=== PATIENT | female | born 1990 | race Caucasian/White ===

== ENCOUNTER 2018-08-07 06:00 | Day surgery (SDC) | payer OTHER ==
[2018-08-07 06:29] LABS: HEMATOCRIT 37.3 % (36.0-47.0); HEMOGLOBIN 13.1 g/dl (12.0-15.5); MEAN CORPUSCULAR HEMOGLOBIN 32.7 pg (27.0-33.0); MEAN CORPUSCULAR HGB CONC 35.1 g/dl (32.0-36.5); PLATELET COUNT, AUTOMATED 285 10^3/uL (150-450); RED BLOOD COUNT 4.01 10^6/uL (4.00-5.40); WHITE BLOOD COUNT 5.6 10^3/uL (4.0-10.0)
[2018-08-07 06:48] LABS: CONTROL LINE HCG INT CTR LINE PRESENT; HCG, SERUM QUALITATIVE NEGATIVE (NEGATIVE)
[2018-08-07] MEDS: LR 1,000 ML IV ×3 (07:00→18:17)
[2018-08-07] MEDS ORDERED: SILVER NITRATE APPLICATOR As Ordered (07:16)
[2018-08-07] MEDS ORDERED: SCOPOLAMINE 1MG TRANSDERMAL PATCH As Ordered (07:17)
[2018-08-07] MEDS ORDERED: SCOPOLAMINE 1MG TRANSDERMAL PATCH TOP (07:45)
[2018-08-07] MEDS: CLINDAMYCIN 900 MG in APPROPRIATE DILUENT 1 EA IV (07:45)
[2018-08-07] MEDS: GENTAMICIN 120 MG in D5W 50 ML IV (07:55)
[2018-08-07] MEDS: BUPIVACAINE HCL 0.25% 30 ML VIAL As Ordered (08:03)
[2018-08-07] MEDS ORDERED: NEOSTIGMINE 10 MG/10 ML VIAL (J2710) As Ordered (09:02)
[2018-08-07] MEDS ORDERED: PROPOFOL 200 MG/20 ML VIAL As Ordered (09:02)
[2018-08-07] MEDS ORDERED: GLYCOPYRROLATE INJ 0.2 MG/ML 2 ML VIAL As Ordered (09:02)
[2018-08-07] MEDS ORDERED: MIDAZOLAM INJ 2 MG/2 ML VIAL (J2250) As Ordered (09:02)
[2018-08-07] MEDS ORDERED: KETOROLAC 60 MG/2 ML VIAL (J1885) As Ordered (09:02)
[2018-08-07] MEDS ORDERED: fentaNYL 250 MCG/5 ML INJECTION (J3010) As Ordered (09:02)
[2018-08-07] MEDS ORDERED: LIDOCAINE 2% INJ 100 MG/5 ML SDV (FOR ANES.) As Ordered (09:02)
[2018-08-07] MEDS ORDERED: ONDANSETRON 4MG/2ML VIAL (J2405) As Ordered (09:02)
[2018-08-07] MEDS ORDERED: ROCURONIUM BROMIDE 50 MG/5 ML VIAL As Ordered ×2 (09:02→11:36)
[2018-08-07] MEDS ORDERED: MORPHINE 10 MG/ML 1ML VIAL (J2270) As Ordered ×2 (09:02→10:34)
[2018-08-07] MEDS ORDERED: dexameTHASONE 4 MG/ML 1ML VIAL (J1100) As Ordered (09:02)
[2018-08-07] MEDS: METHYLENE BLUE 0.5% (5MG/ML) 10 ML AMP (PROVAYBLUE)(Q9968 PER 1MG) As Ordered (09:40)
[2018-08-07] MEDS: MORPHINE 10 MG/ML 1ML VIAL (J2270) IV ×4 (10:36→10:51)
[2018-08-07] MEDS ORDERED: LR 1,000 ML IV (10:45)
[2018-08-07] MEDS ORDERED: PERCOCET 5MG/325MG TAB PO (10:45)
[2018-08-07] MEDS ORDERED: fentaNYL 100 MCG/2 ML INJECTION (J3010) IV (10:45)
[2018-08-07] MEDS ORDERED: ONDANSETRON 4MG/2ML VIAL (J2405) IV (10:45)
[2018-08-07] MEDS: PERCOCET 5MG/325MG TAB PO ×4 (10:58→21:12)
[2018-08-07] MEDS: diphenhydrAMINE INJ 50MG/ML VIAL (J1200) IV (13:30)
[2018-08-07] MEDS: ONDANSETRON 4MG/2ML VIAL (J2405) IV (15:26)
[2018-08-07] MEDS: KETOROLAC 30 MG/ML VIAL (J1885) IV ×2 (16:30→21:13)
[2018-08-07] MEDS: DOCUSATE SODIUM 100 MG CAP PO (21:12)
[2018-08-07] MEDS: PROMETHAZINE INJ 25 MG/ML VIAL (J2550) IV (22:01)
[2018-08-08] MEDS: ONDANSETRON 4MG/2ML VIAL (J2405) IV ×2 (01:44→09:41)
[2018-08-08] MEDS: PERCOCET 5MG/325MG TAB PO ×3 (01:45→10:55)
[2018-08-08] MEDS: LR 1,000 ML IV (02:17)
[2018-08-08] MEDS: KETOROLAC 30 MG/ML VIAL (J1885) IV (04:20)
[2018-08-08 06:57] LABS: BASO % 0.2 % (0.0-1.0); EOS % 0.2 % (0.0-3.0); HEMATOCRIT 29.3 % (36.0-47.0); IMMATURE GRANULOCYTE % 0.5 % (0-3.0); LYMPH # 2.1 10^3/uL (1.5-6.5); LYMPH % 19.9 % (24.0-44.0); MEAN CORPUSCULAR HEMOGLOBIN 32.9 pg (27.0-33.0); MEAN CORPUSCULAR HGB CONC 34.5 g/dl (32.0-36.5); MEAN CORPUSCULAR VOLUME 95.4 fl (80.0-96.0); MONO # 0.7 10^3/uL (0.0-0.8); NEUTROPHILS # 7.5 10^3/uL (1.8-7.7); NEUTROPHILS % 72.2 % (36.0-66.0); PLATELET COUNT, AUTOMATED 261 10^3/uL (150-450); RED BLOOD COUNT 3.07 10^6/uL (4.00-5.40); RED CELL DISTRIBUTION WIDTH 12.7 % (11.5-14.5); WHITE BLOOD COUNT 10.4 10^3/uL (4.0-10.0)
[2018-08-08 07:05] LABS: HEMOGLOBIN 10.1 g/dl (12.0-15.5)
[2018-08-08] MEDS: DOCUSATE SODIUM 100 MG CAP PO (09:27)
[2018-08-08] MEDS: MORPHINE 4 MG/ML 1ML VIAL/SYRINGE (J2270) IV (09:27)
[2018-08-08] MEDS ORDERED: IBUPROFEN 800 MG TAB PO (12:00)
== END 2018-08-08 11:00 | disposition home or self-care (01) ==
LOC: M SDC 06:00 → M PED 11:35
DX: N93.9 Abnormal uterine and vaginal bleeding, unspecified (principal); R10.2 Pelvic and perineal pain; N85.00 Endometrial hyperplasia, unspecified; N73.9 Female pelvic inflammatory disease, unspecified; K50.90 Crohn's disease, unspecified, without complications; Z88.1 Allergy status to other antibiotic agents; Z88.5 Allergy status to narcotic agent; Z88.8 Allergy status to other drugs, medicaments and biological substances; Z98.51 Tubal ligation status
CPT/HCPCS: 58571

== ENCOUNTER → 2018-08-21 | Outpatient (REF) | payer OTHER ==
[2018-08-21 13:32] LABS: APPEARANCE, URINE HAZY (CLEAR); BACTERIA, URINE AUTO 1+ (NEGATIVE); BILIRUBIN, URINE AUTO NEGATIVE (NEGATIVE); BLOOD, URINE BLOOD NEGATIVE (NEGATIVE); COLOR, URINE YELLOW (YELLOW); GLUCOSE, URINE (UA) AUTO NEGATIVE (NEGATIVE); KETONE, URINE AUTO NEGATIVE (NEGATIVE); LEUKOCYTE ESTERASE, URINE AUTO TRACE (NEGATIVE); MUCUS, URINE SMALL (NEGATIVE); NITRITE, URINE AUTO NEGATIVE (NEGATIVE); PROTEIN, URINE AUTO NEGATIVE (NEGATIVE); RBC, URINE AUTO 1 /HPF (0-3); SPECIFIC GRAVITY URINE AUTO 1.018 (1.002-1.035); SQUAMOUS EPITHELIAL CELL UR AU 4 /HPF (0-6); UROBILINOGEN, URINE AUTO 0.2 mg/dL (0.0-2.0); WBC, URINE AUTO 4 /HPF (0-3)
== END ==
LOC: M LAB REF 12:45
DX: R30.0 Dysuria (principal)

== ENCOUNTER → 2018-08-24 | Outpatient (CLI) | payer OTHER ==
[2018-08-24 19:14] LABS: HEMATOCRIT 35.5 % (36.0-47.0); HEMOGLOBIN 12.2 g/dl (12.0-15.5); MEAN CORPUSCULAR HEMOGLOBIN 32.4 pg (27.0-33.0); MEAN CORPUSCULAR HGB CONC 34.4 g/dl (32.0-36.5); MEAN CORPUSCULAR VOLUME 94.2 fl (80.0-96.0); PLATELET COUNT, AUTOMATED 397 10^3/uL (150-450); RED BLOOD COUNT 3.77 10^6/uL (4.00-5.40); RED CELL DISTRIBUTION WIDTH 11.7 % (11.5-14.5)
[2018-08-24 19:36] LABS: ALBUMIN 4.2 GM/DL (3.2-5.2); ALBUMIN/GLOBULIN RATIO 1.27 (1.00-1.93); ALKALINE PHOSPHATASE 108 U/L (45-117); ALT/SGPT 94 U/L (12-78); ANION GAP 11 MEQ/L (8-16); AST/SGOT 25 U/L (7-37); BILIRUBIN,TOTAL 0.4 MG/DL (0.2-1.0); BLOOD UREA NITROGEN 9 MG/DL (7-18); CALCIUM LEVEL 8.9 MG/DL (8.5-10.1); CARBON DIOXIDE LEVEL 28 MEQ/L (21-32); CHLORIDE LEVEL 103 MEQ/L (98-107); CREATININE FOR GFR 0.63 MG/DL (0.55-1.30); GLOMERULAR FILTRATION RATE > 60.0 (>60); GLUCOSE, FASTING 86 MG/DL (70-100); POTASSIUM SERUM 4.5 MEQ/L (3.5-5.1); SODIUM LEVEL 142 MEQ/L (136-145); TOTAL PROTEIN 7.5 GM/DL (6.4-8.2)
== END ==
LOC: M SMT 15:12
DX: R10.2 Pelvic and perineal pain (principal)
CPT/HCPCS: 80053

== ENCOUNTER 2018-11-07 11:59 | Emergency (ER) | payer OTHER ==
[~2018-11-07] VITALS: Ht 144.8 cm; Wt 52.3 kg
[~2018-11-07 11:59] MED LIST: ALEV220T26 PO; COLA100C5 PO; IBUP80TA PO; PERCOCET PO; PHENERGAN PO; TYLE325T5 PO; ZOFR4TAB16 PO
[2018-11-07 12:43] LABS: BASO % 0.5 % (0.0-1.0); EOS # 0.1 10^3/uL (0.0-0.50); EOS % 0.9 % (0.0-3.0); HEMATOCRIT 37.6 % (36.0-47.0); LYMPH # 1.5 10^3/uL (1.5-6.5); LYMPH % 26.5 % (24.0-44.0); MEAN CORPUSCULAR HEMOGLOBIN 32.2 pg (27.0-33.0); MEAN CORPUSCULAR HGB CONC 34.6 g/dl (32.0-36.5); MEAN CORPUSCULAR VOLUME 93.1 fl (80.0-96.0); MONO # 0.4 10^3/uL (0.0-0.8); MONO % 6.2 % (0.0-5.0); NEUTROPHILS # 3.8 10^3/uL (1.8-7.7); NEUTROPHILS % 65.6 % (36.0-66.0); PLATELET COUNT, AUTOMATED 255 10^3/uL (150-450); RED BLOOD COUNT 4.04 10^6/uL (4.00-5.40); WHITE BLOOD COUNT 5.8 10^3/uL (4.0-10.0)
[2018-11-07 13:11] LABS: ALT/SGPT 43 U/L (12-78); BILIRUBIN,DIRECT 0.2 MG/DL (0.0-0.2); BILIRUBIN,TOTAL 0.7 MG/DL (0.2-1.0); BLOOD UREA NITROGEN 9 MG/DL (7-18); CALCIUM LEVEL 8.6 MG/DL (8.5-10.1); CARBON DIOXIDE LEVEL 23 MEQ/L (21-32); CHLORIDE LEVEL 106 MEQ/L (98-107); CREATININE FOR GFR 0.66 MG/DL (0.55-1.30); GLOMERULAR FILTRATION RATE > 60.0 (>60); GLUCOSE, FASTING 86 MG/DL (70-100); LIPASE 187 U/L (73-393); POTASSIUM SERUM 3.9 MEQ/L (3.5-5.1); SODIUM LEVEL 140 MEQ/L (136-145); TOTAL PROTEIN 7.3 GM/DL (6.4-8.2)
[2018-11-07] MEDS ORDERED: NS 1,000 ML IV ONE (13:45)
[2018-11-07] MEDS ORDERED: ONDANSETRON 4MG/2ML VIAL (J2405) IV ONE (13:45)
[2018-11-07] MEDS ORDERED: MORPHINE 4 MG/ML 1ML VIAL/SYRINGE (J2270) IV ONE (13:45)
[2018-11-07] MEDS ORDERED: ISOVUE-370 76% 100ML VIAL (Q9967) As Ordered ONE (13:54)
[2018-11-07 15:01] VITALS: BP 122/68
[2018-11-07] MEDS ORDERED: ZOFR4TAB16 PO (15:05)
[2018-11-07] MEDS ORDERED: PERC5TAB12 PO (15:05)
[2018-11-07] MEDS ORDERED: PROT1TAB2 PO (15:05)
[2018-11-07] MEDS ORDERED: DICY20TA PO (15:05)
--- NOTE | 2018-11-07 15:35 | REP ---
CT abdomen and pelvis with IV but without oral contrast: History: Severe abdominal pain. History of Crohn's disease. Unable to drink oral contrast. No comparison study. CT contrast dose: 100 mL of intravenous Isovue [address] findings: Preliminary digital board writer radiograph demonstrates an unremarkable bowel gas pattern. There are clips in right upper quadrant post cholecystectomy. The lung bases are clear. Bilateral breast augmentation implants are seen. The liver and the spleen are normal in size and homogeneous in texture. Pancreas is unremarkable. No adrenal lesion is observed. Kidneys enhance symmetrically and are morphologically intact. No retroperitoneal mass or adenopathy is seen. There is a small cystic area in the right adnexa. The uterus is surgically absent. No left ovarian lesion is seen. The appendix is surgically absent. No abdominal wall defect is observed. Small and large bowel loops are unremarkable in the abdomen and pelvis. No evidence of free air. Impression: Status post cholecystectomy, hysterectomy, appendectomy. Small cystic area right ovary. No acute abdominal or pelvic abnormality. Electronically Signed by Andrea Bach MD 11/07/2018 06:11 P
== END 2018-11-07 15:20 | disposition home or self-care (01) ==
LOC: M ED 11:59
DX: R10.84 Generalized abdominal pain (principal); R11.2 Nausea with vomiting, unspecified; R19.7 Diarrhea, unspecified; K50.90 Crohn's disease, unspecified, without complications; Z88.0 Allergy status to penicillin; Z88.5 Allergy status to narcotic agent
CPT/HCPCS: 74177; 80048; 80076; 81001; 83690; 85025; 96374; 96375; 99284; J2270; J2405; Q9967

== ENCOUNTER → 2018-11-24 | Outpatient (REF) | payer OTHER ==
[~2018-11-24] MED LIST changes: +DICY20TA PO; +PERC5TAB12 PO; +PROT1TAB2 PO
== END ==
LOC: M LAB REF 14:53
PROVIDERS: ATTEND Physician Assistant
DX: J02.9 Acute pharyngitis, unspecified (principal)

== ENCOUNTER 2018-12-13 15:14 | Emergency (ER) | payer OTHER ==
[~2018-12-13] VITALS: Ht 144.8 cm; Wt 50.0 kg
[2018-12-13] MEDS ORDERED: NS 1,000 ML IV ONE (16:00)
[2018-12-13] MEDS ORDERED: METOCLOPRAMIDE INJ 10MG/2ML VIAL (J2765) IV ONE (16:00)
[2018-12-13] MEDS ORDERED: diphenhydrAMINE INJ 50MG/ML VIAL (J1200) IV ONE (16:00)
[2018-12-13] MEDS ORDERED: KETOROLAC 30 MG/ML VIAL (J1885) IV ONE (16:00)
--- NOTE | 2018-12-13 16:24 | REP ---
CT Head without contrast HISTORY: Syncope COMPARISON: None There is no intraparenchymal hemorrhage, acute infarct, mass or midline shift. The ventricular system is normal in appearance. There is no extra cerebral collection. There is no fracture. The visualized sinuses are clear. IMPRESSION: There is no intracranial lesion. Electronically Signed by Schuyler Navarro MD 12/13/2018 04:15 P
[2018-12-13 16:35] LABS: BLOOD UREA NITROGEN 6 MG/DL (7-18); CALCIUM LEVEL 8.8 MG/DL (8.5-10.1); CARBON DIOXIDE LEVEL 21 MEQ/L (21-32); CHLORIDE LEVEL 109 MEQ/L (98-107); CK-MB VALUE MASS < 1.0 NG/ML (<3.6); CPK CREATINE PHOSPHOKINASE 50 U/L (26-192); CREATININE FOR GFR 0.74 MG/DL (0.55-1.30); GLOMERULAR FILTRATION RATE > 60.0 (>60); GLUCOSE, FASTING 87 MG/DL (70-100); MAGNESIUM LEVEL 2.4 MG/DL (1.8-2.4); SODIUM LEVEL 137 MEQ/L (136-145); THYROID STIMULATING HORMONE 0.656 uIU/ML (0.358-3.740); TROPONIN I < 0.02 NG/ML (< 0.10)
[2018-12-13 17:13] LABS: BASO % 0.4 % (0.0-1.0); EOS # 0.1 10^3/uL (0.0-0.50); EOS % 0.7 % (0.0-3.0); HEMATOCRIT 37.5 % (36.0-47.0); HEMOGLOBIN 13.1 g/dl (12.0-15.5); LYMPH # 1.8 10^3/uL (1.5-6.5); LYMPH % 24.1 % (24.0-44.0); MEAN CORPUSCULAR HEMOGLOBIN 32.2 pg (27.0-33.0); MEAN CORPUSCULAR HGB CONC 34.9 g/dl (32.0-36.5); MEAN CORPUSCULAR VOLUME 92.1 fl (80.0-96.0); MONO # 0.4 10^3/uL (0.0-0.8); NEUTROPHILS # 5.2 10^3/uL (1.8-7.7); NEUTROPHILS % 69.3 % (36.0-66.0); PLATELET COUNT, AUTOMATED 328 10^3/uL (150-450); RED BLOOD COUNT 4.07 10^6/uL (4.00-5.40); WHITE BLOOD COUNT 7.5 10^3/uL (4.0-10.0)
[2018-12-13 18:04] VITALS: BP 102/56
--- NOTE | 2018-12-14 08:06 | ECGEPIP ---
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
== END 2018-12-13 18:32 | disposition home or self-care (01) ==
LOC: M ED 15:14
DX: G43.909 Migraine, unspecified, not intractable, without status migrainosus (principal); K50.90 Crohn's disease, unspecified, without complications; Z88.0 Allergy status to penicillin; Z88.5 Allergy status to narcotic agent; Z88.8 Allergy status to other drugs, medicaments and biological substances
CPT/HCPCS: 70450; 80048; 82550; 82553; 83735; 84443; 84484; 85025; 93005; 96361; 96374; 96375; 99284; J1200; J1885; J2765

== ENCOUNTER 2018-12-17 13:58 | Emergency (ER) | payer OTHER ==
[~2018-12-17] VITALS: Ht 144.8 cm; Wt 50.0 kg
[2018-12-17] MEDS ORDERED: NS 1,000 ML IV ONE (14:30)
[2018-12-17 15:12] LABS: BASO % 0.4 % (0.0-1.0); EOS # 0.1 10^3/uL (0.0-0.50); EOS % 1.3 % (0.0-3.0); HEMATOCRIT 37.1 % (36.0-47.0); HEMOGLOBIN 13.1 g/dl (12.0-15.5); LYMPH # 1.6 10^3/uL (1.5-6.5); LYMPH % 22.9 % (24.0-44.0); MEAN CORPUSCULAR HGB CONC 35.3 g/dl (32.0-36.5); MEAN CORPUSCULAR VOLUME 90.5 fl (80.0-96.0); MONO # 0.5 10^3/uL (0.0-0.8); MONO % 6.4 % (0.0-5.0); NEUTROPHILS # 4.8 10^3/uL (1.8-7.7); NEUTROPHILS % 68.7 % (36.0-66.0); PLATELET COUNT, AUTOMATED 352 10^3/uL (150-450)
[2018-12-17 15:23] LABS: INR 0.97
[2018-12-17 15:24] LABS: PARTIAL THROMBOPLASTIN TIME 26.9 SECONDS (25.4-37.6)
[2018-12-17 15:51] LABS: ALBUMIN 4.3 GM/DL (3.2-5.2); ALT/SGPT 29 U/L (12-78); BILIRUBIN,DIRECT < 0.1 MG/DL (0.0-0.2); BILIRUBIN,TOTAL 0.3 MG/DL (0.2-1.0); BLOOD UREA NITROGEN 8 MG/DL (7-18); CALCIUM LEVEL 8.9 MG/DL (8.5-10.1); CARBON DIOXIDE LEVEL 23 MEQ/L (21-32); CHLORIDE LEVEL 109 MEQ/L (98-107); CK-MB VALUE MASS < 1.0 NG/ML (<3.6); CPK CREATINE PHOSPHOKINASE 29 U/L (26-192); CREATININE FOR GFR 0.72 MG/DL (0.55-1.30); FREE T4 1.29 NG/DL (0.76-1.46); GLOMERULAR FILTRATION RATE > 60.0 (>60); GLUCOSE, FASTING 94 MG/DL (70-100); LIPASE 314 U/L (73-393); MB/CK RELATIVE INDEX 3.45 (< OR =4); NT-PRO BNP 73 PG/ML (<125); POTASSIUM SERUM 3.7 MEQ/L (3.5-5.1); SODIUM LEVEL 141 MEQ/L (136-145); THYROID STIMULATING HORMONE 0.786 uIU/ML (0.358-3.740); TROPONIN I < 0.02 NG/ML (< 0.10)
[2018-12-17] MEDS ORDERED: ISOVUE-370 76% 100ML VIAL (Q9967) As Ordered ONE (15:59)
--- NOTE | 2018-12-17 16:22 | REP ---
CT of the chest with IV contrast, CT pulmonary angiography protocol: There are no comparisons. There are no emboli in the pulmonary trunk or central pulmonary arteries. There are no emboli in the pulmonary lobe or segment branches. There are no infiltrates. There are no effusions. There are no masses or nodules. There is no mediastinal, hilar or axillary lymphadenopathy. There are bilateral breast implants. The thoracic aorta is unremarkable. Cardiac size is normal. The visualized upper abdominal contents are unremarkable. Surgical clips are incidentally identified in the gallbladder fossa. Impression: Negative CT study of the chest. There are no pulmonary emboli. Bilateral breast implants. Cholecystectomy. Electronically Signed by David Paula MD 12/17/2018 04:13 P
[2018-12-17] MEDS ORDERED: PANTOPRAZOLE 40MG INJ (PROTONIX) (C9113) IV ONE (16:45)
[2018-12-17] MEDS ORDERED: PROT1TAB2 PO (17:30)
[2018-12-17 17:35] VITALS: BP 103/66
--- NOTE | 2018-12-17 17:58 | ECGEPIP ---
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
== END 2018-12-17 17:42 | disposition home or self-care (01) ==
LOC: M ED 13:58
DX: R10.13 Epigastric pain (principal); R06.02 Shortness of breath; K50.90 Crohn's disease, unspecified, without complications; Z88.0 Allergy status to penicillin; Z88.5 Allergy status to narcotic agent; Z88.8 Allergy status to other drugs, medicaments and biological substances
CPT/HCPCS: 71275; 80048; 80076; 82550; 82553; 83690; 83880; 84439; 84443; 84484; 85025; 85610; 85730; 93005; 96361; 96374; 99284; C9113; Q9967

== ENCOUNTER 2019-01-15 12:13 | Emergency (ER) | payer OTHER ==
[~2019-01-15] VITALS: Ht 144.8 cm; Wt 49.5 kg
[2019-01-15] MEDS ORDERED: SUMA25TA3 OR (14:06)
[2019-01-15] MEDS ORDERED: ESCI10TA2 OR (14:06)
[2019-01-15] MEDS ORDERED: KETOROLAC 60 MG/2 ML VIAL (J1885) IM ONE (14:15)
[2019-01-15] MEDS ORDERED: NAPR-837 PO (14:41)
--- NOTE | 2019-01-15 14:41 | REP ---
PELVIC SONOGRAPHY: HISTORY: Pelvic pain. FINDINGS: Transabdominal scanning demonstrates a largely empty urinary bladder. Uterus is surgically absent. Normal left ovary seen with dimensions of 2.8 x 1.7 x 1.7 cm. Its Doppler flow is normal, resistive index is 0.63. The right ovary measures 4.4 x 2.6 x 3.8 cm. It contains a 2.2 cm hypoechoic cyst which may be a hemorrhagic cyst. Its Doppler flow was normal resistive index 0.59. IMPRESSION: 2.2 cm hypoechoic cyst in the right ovary may be a hemorrhagic follicle. Otherwise negative pelvic sonography post hysterectomy. Electronically Signed by Andrea Bach MD 01/15/2019 02:52 P
[2019-01-15 15:12] VITALS: BP 107/69
== END 2019-01-15 15:14 | disposition home or self-care (01) ==
LOC: M ED 12:13
DX: N83.201 Unspecified ovarian cyst, right side (principal); K50.90 Crohn's disease, unspecified, without complications; Z88.0 Allergy status to penicillin; Z88.5 Allergy status to narcotic agent; Z79.899 Other long term (current) drug therapy
CPT/HCPCS: 76856; 96372; 99283; J1885

== ENCOUNTER → 2019-01-17 | Outpatient (CLI) | payer OTHER ==
[~2019-01-17] MED LIST changes: +ESCI10TA2 OR; +NAPR-50 PO; +SUMA25TA3 OR
[2019-01-17 13:28] LABS: BASO % 0.6 % (0.0-1.0); EOS # 0.1 10^3/uL (0.0-0.50); EOS % 1.7 % (0.0-3.0); HEMATOCRIT 37.8 % (36.0-47.0); LYMPH # 1.5 10^3/uL (1.5-6.5); LYMPH % 30.6 % (24.0-44.0); MEAN CORPUSCULAR HEMOGLOBIN 32.7 pg (27.0-33.0); MEAN CORPUSCULAR HGB CONC 34.4 g/dl (32.0-36.5); MONO # 0.4 10^3/uL (0.0-0.8); NEUTROPHILS # 2.8 10^3/uL (1.8-7.7); NEUTROPHILS % 57.7 % (36.0-66.0); PLATELET COUNT, AUTOMATED 269 10^3/uL (150-450); RED BLOOD COUNT 3.98 10^6/uL (4.00-5.40); WHITE BLOOD COUNT 4.8 10^3/uL (4.0-10.0)
[2019-01-17 13:57] LABS: HEMOGLOBIN A1c 4.5 %
[2019-01-17 14:05] LABS: ALBUMIN 4.3 GM/DL (3.2-5.2); ALT/SGPT 23 U/L (12-78); BILIRUBIN,TOTAL 0.6 MG/DL (0.2-1.0); BLOOD UREA NITROGEN 6 MG/DL (7-18); CALCIUM LEVEL 9.2 MG/DL (8.5-10.1); CARBON DIOXIDE LEVEL 24 MEQ/L (21-32); CHLORIDE LEVEL 109 MEQ/L (98-107); CHOLESTEROL LEVEL 130 MG/DL (<200); CREATININE FOR GFR 0.61 MG/DL (0.55-1.30); GLOMERULAR FILTRATION RATE > 60.0 (>60); GLUCOSE, FASTING 84 MG/DL (70-100); HDL CHOLESTEROL 50 MG/DL (>40); LDL CHOLESTEROL 69 MG/DL (<100); NON-HDL-C 80 MG/DL; POTASSIUM SERUM 4.9 MEQ/L (3.5-5.1); SODIUM LEVEL 140 MEQ/L (136-145); TOTAL PROTEIN 6.9 GM/DL (6.4-8.2); TRIGLYCERIDES LEVEL 56 MG/DL (<150)
== END ==
LOC: M SMT 10:09
PROVIDERS: ATTEND Physician Assistant
DX: Z13.29 Encounter for screening for other suspected endocrine disorder (principal)

== ENCOUNTER → 2019-03-22 | Outpatient (REF) | payer OTHER ==
[~2019-03-22] MED LIST changes: -NAPR-50 PO; +NAPR-837 PO
== END ==
LOC: M LAB REF 17:20
PROVIDERS: ATTEND Physician Assistant
DX: N39.0 Urinary tract infection, site not specified (principal)

== ENCOUNTER → 2019-04-24 | Outpatient (CLI) | payer OTHER | LOC: M LAB 10:43 | PROVIDERS: ATTEND Physician Assistant Medical | DX: M54.5 Low back pain (principal); M25.551 Pain in right hip ==

== ENCOUNTER → 2019-04-25 | Outpatient (CLI) | payer OTHER ==
--- NOTE | 2019-04-25 09:13 | REP ---
CT lumbar spine without contrast History: Back pain There is no disc bulge or herniation at the L1-2 through through L3-4 and L5-L1 levels. The nerves exit the neural foramina without compression. There is partial sacralization of the L5 vertebral body. The nerves exit the neural foramina without compression. 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 A rudimentary disc is present. There is hyperplasia of the L4-5 facets and lamina. This produces minimal central canal stenosis. There is no disc bulge or herniation. The L4 nerves exit the neural foramina without compression. The L1-2 through L3-4 and L5-L1 intervertebral discs are normal in height. There is no fracture or subluxation. Impression: 1. There is no disc bulge or herniation. 2. Congenital anomaly as described above. Electronically Signed by Schuyler Navarro MD 04/25/2019 09:05 A
== END ==
LOC: M RAD 08:24
PROVIDERS: ATTEND Physician Assistant Medical
DX: Q76.49 Other congenital malformations of spine, not associated with scoliosis (principal)